=== PATIENT | male | born 1965 | race Caucasian/White ===

== ENCOUNTER 2021-05-18 11:54 | Emergency (ER) | payer MEDICAID ==
--- NOTE | 2021-05-18 12:50 | EDM.PDOC ---
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 They had just inserted the needle in his arm but hadn't drawn much blood yet. He "passed out" for about 30 seconds and exhibited a few dry heaves. He was sitting back in his chair and didn't fall to floor. No loss of urine. Patient doesn't remember any of this. He tells me he has had body aches, fatigue, weakness and occasional vomiting and diarrhea for the last week. Also felt feverish but never checked temp. The last two days he has been improving but still loose stools 3x/day and still feeling weak and tired. He feels like he is getting over the "flu". He was tested yesterday for Covid, influenza a/b, RSV here at the hospital and all were negative. - Related Data Allergies Allergy/AdvReac Type Severity Reaction Status Date / Time pollen extracts Allergy Other Verified 05/18/21 12:00 Home Meds: Home Meds Albuterol Sulfate [Proair Hfa] 2 inh INH Q4H PRN 05/18/21 [History] Lisinopril/Hydrochlorothiazide [Lisinopril-Hctz 20-12.5 mg Tab] 1 tab PO DAILY 05/18/21 [History] amLODIPine [Norvasc] 2.5 mg PO DAILY 05/18/21 [History] Past Medical History Cardiovascular History: Reports: Hypertension Respiratory History: Reports: Asthma Social & Family History - Tobacco Use Tobacco Use Status *Q: Current Every Day Tobacco User Years of Tobacco use: 39 Packs/Tins Daily: 1 Second Hand Smoke Exposure: Yes - Caffeine Use Caffeine Use: Reports: Soda Caffeine Use Comment: 6 cans per day - Alcohol Use Days Per Week of Alcohol Use: 7 Number of Drinks Per Day: 2 Total Drinks Per Week: 14 Date of Last Drink: 05/18/21 Time of Last Drink: 21:00 - Recreational Drug Use Recreational Drug Use: No ED ROS GENERAL - Review of Systems Review Of Systems: See Below Constitutional: Reports: Chills, Malaise, Weakness, Fatigue HEENT: Denies: Ear Pain, Throat Pain, Vision Change Respiratory: Denies: Shortness of Breath, Cough (no worse than his normal "smokers cough") Cardiovascular: Reports: Syncope. Denies: Chest Pain, Lightheadedness Endocrine: Reports: Fatigue GI/Abdominal: Reports: Diarrhea, Vomiting. Denies: Abdominal Pain : Denies: Dysuria, Flank Pain Musculoskeletal: Reports: No Symptoms Skin: Reports: No Symptoms Neurological: Reports: Syncope. Denies: Confusion, Dizziness, Headache, Seizure, Trouble Speaking, Difficulty Walking Psychiatric: Denies: Agitation, Anxiety, Confusion ED EXAM, GENERAL - Physical Exam Exam: See Below Exam Limited By: No Limitations General Appearance: Alert, WD/WN, No Apparent Distress Eye Exam: Bilateral Eye: EOMI, Normal Inspection, PERRL Ears: Normal External Exam, Hearing Grossly Normal Nose: Normal Inspection, No Blood Throat/Mouth: Normal Inspection, Normal Lips, Normal Voice, No Airway Compromise Head: Atraumatic, Normocephalic Neck: Normal Inspection, Full Range of Motion Respiratory/Chest: No Respiratory Distress, Lungs Clear, Normal Breath Sounds, No Accessory Muscle Use Cardiovascular: Regular Rate, Rhythm, No Murmur GI/Abdominal: Normal Bowel Sounds, Soft, Non-Tender, No Organomegaly, No Distention Back Exam: Normal Inspection, Full Range of Motion. No: CVA Tenderness (L), CVA Tenderness (R) Extremities: Normal Inspection, Normal Range of Motion Neurological: Alert, Oriented, Normal Cognition, No Motor/Sensory Deficits Psychiatric: Normal Affect, Normal Mood Skin Exam: Warm, Dry, Intact, Normal Color, No Rash Course - Vital Signs Last Recorded V/S: Last Vital Signs Temp 96.5 F L 05/18/21 11:55 Pulse 70 05/18/21 13:15 Resp 20 05/18/21 13:15 BP 167/104 H 05/18/21 13:15 Pulse Ox 97 05/18/21 13:15 - Orders/Labs/Meds Orders: Active Orders 24 hr Category Date Time Status Sodium Chloride 0.9% @ 999 MLS/HR (1000ml) Med 05/18/21 12:57 Ordered Sodium Chloride 0.9% [Normal Saline] 1,000 ml IV .BOLUS EKG 12 Lead [EK] Stat Ther 05/18/21 12:42 Ordered Medication Orders Sodium Chloride (Normal Saline) 1,000 mls @ 999 mls/hr IV .BOLUS ONE Stop: 05/18/21 13:57 Last Admin: 05/18/21 13:10 Dose: 999 mls/hr Documented by: MADAN Meds: Medications Generic Name Dose Route Start Last Admin Trade Name Cindy PRN Reason Stop Dose Admin Sodium Chloride 1,000 mls @ 999 mls/hr 05/18/21 12:57 05/18/21 13:10 Normal Saline IV 05/18/21 13:57 999 mls/hr .BOLUS ONE Administration - Re-Assessments/Exams Free Text/Narrative Re-Assessment/Exam: 05/18/21 13:33 EKG shows NSR with HR 65 05/18/21 13:52 CBC and CMP are good. Since they were ordered, along with lipid panel by Dr. Turner, they don't populate into this ER note but I discussed them with mary kate mancia. I informed him that his triglycerides are elevated and he will want to discuss those results with Dr. Turner soon. Patient is feeling better and a liter of NS is almost in. He is discharged to home in stable condition. Departure - Departure Time of Disposition: 13:54 Disposition: Home, Self-Care 01 Condition: Good Clinical Impression: Episode of syncope Qualifiers: Syncope type: vasovagal syncope Qualified Code(s): R55 - Syncope and collapse - Discharge Information Instructions: Syncope, [id number] Referrals: Jaylin Tamayo MD [Primary Care Provider] - Forms: ED Department Discharge Additional Instructions: Drink 8 cups of water daily. Call your PCP for follow up appointment to discuss your labs from today. If any problems, recheck in clinic or ER as needed. Sepsis Event Note (ED) - Evaluation Sepsis Screening Result: No Definite Risk - Focused Exam Vital Signs: Vital Signs Temp Pulse Resp BP Pulse Ox 05/18/21 13:15 70 20 167/104 H 97 05/18/21 11:55 96.5 F L 75 20 122/83 98 - My Orders Last 24 Hours: My Active Orders 05/18/21 12:42 EKG 12 Lead [EK] Stat 05/18/21 12:57 Sodium Chloride 0.9% @ 999 MLS/HR (1000ml) Sodium Chloride 0.9% [Normal Saline] 1,000 ml IV .BOLUS - Assessment/Plan Last 24 Hours: My Active Orders 05/18/21 12:42 EKG 12 Lead [EK] Stat 05/18/21 12:57 Sodium Chloride 0.9% @ 999 MLS/HR (1000ml) Sodium Chloride 0.9% [Normal Saline] 1,000 ml IV .BOLUS
[2021-05-18] MEDS: Sodium Chloride 0.9% 1,000 ML IV ONE (13:10)
[2021-05-18] MEDS: Metoprolol Tartrate 50 MG Tab PO ONE (14:32)
[2021-05-18] MEDS: LORazepam 0.5 MG Tab PO ONE (14:33)
== END 2021-05-18 15:35 | disposition home or self-care (01) ==
LOC: KA.ED 11:54
DX: R55 Syncope and collapse (principal); I10 Essential (primary) hypertension; J45.909 Unspecified asthma, uncomplicated; Z91.09 Other allergy status, other than to drugs and biological substances; Z72.0 Tobacco use; Z79.899 Other long term (current) drug therapy
CPT/HCPCS: 93005; 99284; 99284-25; A9270-GY; J7030

== ENCOUNTER 2021-05-21 12:05 | Emergency (ER) | payer MEDICAID ==
--- NOTE | 2021-05-21 13:45 | CT ---
[id number] CT/CT Head WO IV EXAM: CT Head WO IV CLINICAL DATA: NEUROLOGIC DEFICIT COMPARISON: No previous similar exam is available for comparison. FINDINGS: There is no mass or mass effect. There is no hemorrhage or hydrocephalus. There are no extra-axial fluid collections. There are no sites of abnormal attenuation. IMPRESSION: NO PLAIN CT EVIDENCE OF ACUTE INTRACRANIAL PROCESS. Lamin Angela MD 05/21/21 [id number] Thank you for allowing us to participate in the care of your patient.
--- NOTE | 2021-05-21 13:49 | EDM.PDOC ---
ED HPI GENERAL MEDICAL PROBLEM - General Stated Complaint: DISORIENTATION Time Seen by Provider: 05/21/21 13:04 Source of Information: Reports: Patient, Provider, Significant Other History Limitations: Reports: No Limitations - History of Present Illness INITIAL COMMENTS - FREE TEXT/NARRATIVE: Patient presents with several symptoms; some old, some new. For the past 2 weeks he has noticed some trouble with balance and blurry vision. Three days ago he passed out from a routine lab draw which seemed odd to him since he frequently has small injuries at work and isn't bothered by seeing his own blood. He was in ER for that. Last evening he had 2 drinks of alcohol and around 9-10:00 PM took his Alprazolam for the first time (a new Rx from PCP, Jurgen Osborne). He awoke at 0400 not feeling quite right, a little confused. His says at 0730, he took a bath and got ready for work then went back to bed and slept a bit. At 0800 he took another bath and didn't remember he did before; says he was "disoriented like he was drunk". At 0930 he went to work and they sent him home due to confusion. At 1000 he couldn't remember how to use his debit card/PIN at [employer]. He isn't disoriented except thought it was 05/20 instead of 05/21. He knew yesterday was 's Day, knows today is Monday. - Related Data Allergies Allergy/AdvReac Type Severity Reaction Status Date / Time pollen extracts Allergy Other Verified 05/21/21 12:14 Home Meds: Home Meds Albuterol Sulfate [Proair Hfa] 2 inh INH Q4H PRN 05/18/21 [History] Lisinopril/Hydrochlorothiazide [Lisinopril-Hctz 20-12.5 mg Tab] 1 tab PO DAILY 05/18/21 [History] amLODIPine [Norvasc] 2.5 mg PO DAILY 05/18/21 [History] ALPRAZolam [Alprazolam] 0.25 mg PO Q8HR PRN 05/21/21 [History] Fenofibrate 160 mg PO DAILY 05/21/21 [History] Fluticasone/Salmeterol [Advair 100-50] 1 puff INH DAILY 05/21/21 [History] Past Medical History Cardiovascular History: Reports: Hypertension Respiratory History: Reports: Asthma Social & Family History - Caffeine Use Caffeine Use: Reports: Soda Caffeine Use Comment: 6 cans per day ED ROS GENERAL - Review of Systems Review Of Systems: See Below Constitutional: Reports: Chills (feels chilled and shaking in exam room). Denies: Fever HEENT: Denies: Ear Pain, Throat Pain Respiratory: Denies: Shortness of Breath, Cough Cardiovascular: Reports: Syncope (three days ago). Denies: Chest Pain GI/Abdominal: Reports: Vomiting (not often). Denies: Abdominal Pain : Denies: Dysuria, Flank Pain Musculoskeletal: Denies: Neck Pain, Shoulder Pain, Arm Pain Skin: Denies: Cyanosis, Jaundice, Mottled, Pallor, Diaphoresis Neurological: Reports: Confusion. Denies: Headache Psychiatric: Denies: Agitation - Physical Exam Exam: See Below Exam Limited By: No Limitations General Appearance: Alert, WD/WN, No Apparent Distress Eye Exam: Bilateral Eye: EOMI, Normal Inspection (full visual osuna), PERRL Ears: Normal External Exam, Hearing Grossly Normal Nose: Normal Inspection, No Blood Throat/Mouth: Normal Inspection, Normal Lips, Normal Voice, No Airway Compromise Head Exam: Atraumatic, Normocephalic Neck: Normal Inspection, Full Range of Motion Respiratory/Chest: No Respiratory Distress, Lungs Clear, Normal Breath Sounds, No Accessory Muscle Use Cardiovascular: Regular Rate, Rhythm, No Murmur GI/Abdominal: Normal Bowel Sounds, Soft, Non-Tender, No Organomegaly, No Distention Neuro Exam (Abbreviated): Alert, Oriented, CN II-XII Intact Back Exam: Normal Inspection, Full Range of Motion. 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 He hasn't noticed a right leg weakness.) Psychiatric: Normal Affect, Normal Mood Skin Exam: Warm, Dry, Intact, Normal Color, No Rash Course - Vital Signs Last Recorded V/S: Last Vital Signs Temp 97.0 F 05/21/21 12:15 Pulse 88 05/21/21 12:45 Resp 16 05/21/21 12:45 BP 128/85 05/21/21 12:45 Pulse Ox 97 05/21/21 12:45 - Orders/Labs/Meds Orders: Active Orders 24 hr Category Date Time Status UA W/MICROSCOPIC [URIN] Stat Lab 05/21/21 13:43 Ordered [place] VIRUS ANTIBODY,SERUM [REF] Stat Lab 05/21/21 13:51 Ordered Labs: Laboratory Tests 05/21/21 05/21/21 05/21/21 Range/Units 13:37 13:37 14:07 WBC 6.48 (5.00-10.00) 10^3/uL RBC 4.75 (4.50-6.00) 10^6/uL Hgb 15.3 (13.0-17.0) g/dL Hct 44.1 (40.0-52.0) % MCV 92.8 H (82.0-92.0) fL MCH 32.2 H (27.0-31.0) pg MCHC 34.7 (32.0-36.0) g/dL RDW 13.0 (11.5-14.5) % Plt Count 224 (150-400) 10^3/uL MPV 8.5 (7.4-10.4) fL Immature Gran % (Auto) 0.2 (0.0-5.0) % Neut % (Auto) 79.8 H (50.0-70.0) % Lymph % (Auto) 15.3 L (20.0-40.0) % Coffey % (Auto) 4.3 (2.0-8.0) % Eos % (Auto) 0.2 L (1.0-3.0) % Baso % (Auto) 0.2 (0.0-1.0) % Neut # (Auto) 5.18 (2.50-7.00) 10^3/uL Lymph # (Auto) 0.99 L (1.00-4.00) 10^3/uL Coffey # (Auto) 0.28 (0.10-0.80) 10^3/uL Eos # (Auto) 0.01 L (0.10-0.30) 10^3/uL Baso # (Auto) 0.01 (0.00-0.10) 10^3/uL Immature Gran # (Auto) 0.01 (0.00-0.50) 10^3/uL Sodium 140 (136-145) mmol/L Potassium 4.1 (3.5-5.1) mmol/L Chloride 102 (98-107) mmol/L Carbon Dioxide 23.8 (21.0-32.0) mmol/L Anion Gap 18.3 H (5-15) mmol/L BUN 14 (7-18) mg/dL Creatinine 0.71 (0.51-1.17) mg/dL Est Cr Clr Drug Dosing 123.73 mL/min Estimated GFR (MDRD) > 60 mL/min Glucose 107 (70-140) mg/dL Calcium 8.8 (8.7-10.3) mg/dL Total Bilirubin 0.6 (0.2-1.0) mg/dL AST 36 (15-37) U/L ALT 42 (14-63) U/L Alkaline Phosphatase 50 (46-116) U/L Total Protein 7.8 (6.4-8.2) g/dL Albumin 3.85 (3.40-5.00) g/dL Ethyl Alcohol 221 H* (NOT DETECTED) mg/dL SARS CoV-2 RNA Rapid PHI Negative (NEGATIVE) - Re-Assessments/Exams Free Text/Narrative Re-Assessment/Exam: 05/21/21 14:[address] and CBC are normal. Waiting on more labs. 05/21/21 15:02 CBC, CMP, Covid are normal. ETOH is 221. Since Jurgen Osborne NP is his PCP and talked to him this morning before he came to ER, I discussed case with him. At around 0900 he had told patient to not go to work since he wasn't feeling quite right and didn't want him driving. Jurgen and I talked with the patient about the ETOH and he first said he had one drink this morning; then said he had 2 drinks this morning; it sounds a little fuzzy about how much the drinks (venita) actually were. While we waited for the last labs patient left without final discussion of results and plan. The nurse called him back with results and talked with his ; he had made it home. Based on findings, we feel there is no stroke symptoms and it is all likely due to alcohol use. He will follow up with Jurgen in clinic for help with this. Departure - Departure Time of Disposition: 15:11 Disposition: Home, Self-Care 01 Condition: Good Clinical Impression: Alcohol abuse - Discharge Information Referrals: Jurgen Osborne [employer] [Primary Care Provider] - Sepsis Event Note (ED) - Focused Exam Vital Signs: Vital Signs Temp Pulse Resp BP Pulse Ox 05/21/21 12:45 88 16 128/85 97 05/21/21 12:30 94 16 133/96 H 98 05/21/21 12:15 97.0 F 105 H 20 145/90 H 97 - My Orders Last 24 Hours: My Active Orders 05/21/21 13:43 UA W/MICROSCOPIC [URIN] Stat 05/21/21 13:51 [place] VIRUS ANTIBODY,SERUM [REF] Stat - Assessment/Plan Last 24 Hours: My Active Orders 05/21/21 13:43 UA W/MICROSCOPIC [URIN] Stat 05/21/21 13:51 [place] VIRUS ANTIBODY,SERUM [REF] Stat
[2021-05-21 14:07] LABS: ANION GAP 18.3 mmol/L (5-15); CHLORIDE,CL 102 mmol/L (98-107); SODIUM,NA 140 mmol/L (136-145)
== END 2021-05-21 14:40 | disposition home or self-care (01) ==
LOC: KA.ED 12:05
DX: F10.10 Alcohol abuse, uncomplicated (principal); I10 Essential (primary) hypertension; J45.909 Unspecified asthma, uncomplicated; Y90.7 Blood alcohol level of 200-239 mg/100 ml; Z91.048 Other nonmedicinal substance allergy status; Z79.899 Other long term (current) drug therapy; Z20.822 Contact with and (suspected) exposure to COVID-19
CPT/HCPCS: 36415; 70450; 80053; 80307; 85025; 86788; 86789; 99284-25; U0002

== ENCOUNTER 2022-07-05 10:38 | Emergency (ER) | payer MEDICAID ==
[2022-07-05] MEDS ORDERED: Sodium Chloride 0.9% 1,000 ML IV ONE (11:17)
[2022-07-05 11:42] LABS: ANION GAP 18.6 mmol/L (5-15); CHLORIDE,CL 101 mmol/L (98-107); SODIUM,NA 138 mmol/L (136-145)
[2022-07-05 11:43] LABS: ESTIMATED GFR 100 mL/min (>=60)
== END 2022-07-05 15:10 | disposition home or self-care (01) ==
LOC: KA.ED 10:38
DX: F10.129 Alcohol abuse with intoxication, unspecified (principal); J45.909 Unspecified asthma, uncomplicated; R68.83 Chills (without fever); I10 Essential (primary) hypertension; Z91.048 Other nonmedicinal substance allergy status; Z79.899 Other long term (current) drug therapy
CPT/HCPCS: 80053; 80307; 81001; 84484; 85025; 93005; 93010; 96360; 99284; 99285-25; J7030

== ENCOUNTER 2022-08-22 10:50 | Emergency (ER) | payer MEDICAID ==
[2022-08-22] MEDS: Sodium Chloride 0.9% 1,000 ML IV ONE (11:06)
[2022-08-22 11:22] LABS: ANION GAP 18.4 mmol/L (5-15)
== END 2022-08-22 14:08 | disposition home or self-care (01) ==
LOC: KA.ED 10:50
DX: R42 Dizziness and giddiness (principal); F10.920 Alcohol use, unspecified with intoxication, uncomplicated; I10 Essential (primary) hypertension; J45.909 Unspecified asthma, uncomplicated; Z91.048 Other nonmedicinal substance allergy status; Z79.899 Other long term (current) drug therapy; Y90.4 Blood alcohol level of 80-99 mg/100 ml
CPT/HCPCS: 36415; 80053; 80307; 84484; 85025; 93005; 93010; 96360; 99284; 99284-25; J7030

== ENCOUNTER 2024-02-22 13:09 | Emergency (ER) | payer MEDICAID ==
[2024-02-22 13:28] LABS: HEMOGLOBIN 13.3 g/dL (13.0-17.0); IMMATURE GRAN ABSOLUTE AUTO 0.01 10^3/uL (0.00-0.50); IMMATURE GRAN PERCENT AUTO 0.2 % (0.0-5.0); LYMPHOCYTES ABSOLUTE AUTO 0.28 10^3/uL (1.00-4.00); LYMPHOCYTES PERCENT AUTO 4.6 % (20.0-40.0); MEAN CORPUSCULAR HEMOGLOBIN 32.6 pg (27.0-31.0); MEAN CORPUSCULAR VOLUME 93.1 fL (82.0-92.0); MEAN PLATELET VOLUME 8.6 fL (7.4-10.4); MONOCYTES ABSOLUTE AUTO 0.23 10^3/uL (0.10-0.80); MONOCYTES PERCENT AUTO 3.8 % (2.0-8.0); NEUTROPHILS ABSOLUTE AUTO 5.52 10^3/uL (2.50-7.00); NEUTROPHILS PERCENT AUTO 91.4 % (50.0-70.0); PLATELET COUNT,PLT 160 10^3/uL (150-400); RED BLOOD CELL COUNT 4.08 10^6/uL (4.50-6.00); RED CELL DISTRIBUTION WIDTH 13.9 % (11.5-14.5); WHITE BLOOD CELL COUNT,WBC 6.04 10^3/uL (5.00-10.00)
[2024-02-22 13:48] LABS: ANION GAP 20.3 mmol/L (5-15); BLOOD UREA NITROGEN,BUN 16 mg/dL (7-18); CALCIUM 8.6 mg/dL (8.7-10.3); CARBON DIOXIDE,CO2 21.2 mmol/L (21.0-32.0); CHLORIDE,CL 103 mmol/L (98-107); CREATININE 0.86 mg/dL (0.51-1.17); GLUCOSE RANDOM 119 mg/dL (70-140); POTASSIUM,K 3.5 mmol/L (3.5-5.1); SODIUM,NA 141 mmol/L (136-145)
[2024-02-22 13:51] LABS: ESTIMATED GFR 100 mL/min (>=60)
[2024-02-22] MEDS: Albuterol 0.083% 2.5 MG/3 ML Neb Soln NEB ONE (14:08)
== END 2024-02-22 14:50 | disposition home or self-care (01) ==
LOC: KA.ED 13:09
DX: J44.0 Chronic obstructive pulmonary disease with (acute) lower respiratory infection (principal); J45.41 Moderate persistent asthma with (acute) exacerbation; I10 Essential (primary) hypertension; E78.00 Pure hypercholesterolemia, unspecified; F17.200 Nicotine dependence, unspecified, uncomplicated; Z91.048 Other nonmedicinal substance allergy status; Z91.018 Allergy to other foods; Z79.51 Long term (current) use of inhaled steroids; Z79.899 Other long term (current) drug therapy
CPT/HCPCS: 36415; 80048; 83605; 84484; 85025; 94640; 99285; J7613-GY

== ENCOUNTER 2024-03-30 16:25 | Emergency (ER) | payer MEDICAID ==
[2024-03-30] MEDS: Sodium Chloride 0.9% 1,000 ML IV ONE ×2 (16:56→17:58)
[2024-03-30 16:57] LABS: BASOPHILS ABSOLUTE AUTO 0.04 10^3/uL (0.00-0.10); BASOPHILS PERCENT AUTO 1.2 % (0.0-1.0); EOSINOPHILS ABSOLUTE AUTO 0.07 10^3/uL (0.10-0.30); HEMATOCRIT 37.2 % (40.0-52.0); HEMOGLOBIN 13.1 g/dL (13.0-17.0); LYMPHOCYTES ABSOLUTE AUTO 0.62 10^3/uL (1.00-4.00); LYMPHOCYTES PERCENT AUTO 18.1 % (20.0-40.0); MEAN CORPUSCULAR HEMOGLOBIN 33.8 pg (27.0-31.0); MEAN CORPUSCULAR HGB CONC 35.2 g/dL (32.0-36.0); MEAN CORPUSCULAR VOLUME 95.9 fL (82.0-92.0); MEAN PLATELET VOLUME 9.2 fL (7.4-10.4); MONOCYTES PERCENT AUTO 11.7 % (2.0-8.0); PLATELET COUNT,PLT 106 10^3/uL (150-400); RED BLOOD CELL COUNT 3.88 10^6/uL (4.50-6.00); RED CELL DISTRIBUTION WIDTH 15.1 % (11.5-14.5); WHITE BLOOD CELL COUNT,WBC 3.43 10^3/uL (5.00-10.00)
[2024-03-30 17:13] LABS: ANION GAP 16.6 mmol/L (5-15); CALCIUM 8.7 mg/dL (8.7-10.3); CARBON DIOXIDE,CO2 27.4 mmol/L (21.0-32.0); CREATININE 0.64 mg/dL (0.51-1.17); EST CRCL DRUG DOSING (CG) 132.36 mL/min
[2024-03-30] MEDS: [UNRECOGNIZED DRUG - OTHER] PO ONE (17:35)
[2024-03-30] MEDS: THIAMINE PO ONE (17:35)
[2024-03-30] MEDS: LUT PO ONE (17:35)
[2024-03-30] MEDS: FOLIC ACID PO ONE (17:35)
[2024-03-30] MEDS: MV CA IRON MIN PO ONE (17:35)
[2024-03-30] MEDS: LYCOPENE PO ONE (17:35)
[2024-03-30] MEDS: Potassium Chloride 20 MEQ Tab.ER PO ONE (17:35)
[2024-03-30 18:28] LABS: APPEARANCE,URINE CLEAR (CLEAR); BILIRUBIN,URINE NEGATIVE (NEGATIVE); COLOR,URINE YELLOW (YELLOW); GLUCOSE,URINE NEGATIVE (NEGATIVE); KETONES,URINE NEGATIVE (NEGATIVE); LEUKOCYTE ESTERASE,URINE NEGATIVE (NEGATIVE); NITRITE,URINE NEGATIVE (NEGATIVE); OCCULT BLOOD,URINE NEGATIVE (NEGATIVE); PROTEIN,URINE NEGATIVE (NEGATIVE); UROBILINOGEN,URINE 0.2 E.U./dL (0.2-1.0)
[2024-03-30 18:36] LABS: AMPHETAMINES SCREEN, URINE NEGATIVE (NEGATIVE); BACTERIA,URINE RARE /HPF (NONE TO FEW); BARBITURATE SCREEN,URINE NEGATIVE (NEGATIVE); BENZODIAZEPINES SCREEN,URINE NEGATIVE (NEGATIVE); COCAINE METABOLITES,URINE NEGATIVE (NEGATIVE); EPITHELIAL CELLS,URINE RARE /LPF; METHAMPHETAMINES SCREEN, URINE NEGATIVE (NEGATIVE); RBC,URINE 0-5 /HPF (0-5); WBC,URINE 0-5 /HPF (0-5)
[2024-03-30 18:37] LABS: METHADONE SCREEN, URINE NEGATIVE (NEGATIVE); OXYCODONE SCREEN,URINE NEGATIVE (NEGATIVE); PCP SCREEN,URINE NEGATIVE (NEGATIVE); TCA SCREEN,URINE NEGATIVE (NEGATIVE); THC SCREEN,URINE 50 NG/ML NEGATIVE (NEGATIVE)
== END 2024-03-30 19:10 | disposition home or self-care (01) ==
LOC: KA.ED 16:25
DX: F10.220 Alcohol dependence with intoxication, uncomplicated (principal); E87.6 Hypokalemia; I10 Essential (primary) hypertension; F17.210 Nicotine dependence, cigarettes, uncomplicated; Z91.048 Other nonmedicinal substance allergy status; Z79.899 Other long term (current) drug therapy
CPT/HCPCS: 80048; 80305; 80307; 81001; 84484; 85025; 96360; 96361; 99285; A9270; J7030; 93005

== ENCOUNTER 2024-03-31 09:02 | Emergency (ER) | payer MEDICAID | END 2024-03-31 10:45 | disposition home or self-care (01) | LOC: KA.ED 09:02 | DX: F10.120 Alcohol abuse with intoxication, uncomplicated (principal); I10 Essential (primary) hypertension; J45.909 Unspecified asthma, uncomplicated; F17.210 Nicotine dependence, cigarettes, uncomplicated; Z79.899 Other long term (current) drug therapy; Z91.048 Other nonmedicinal substance allergy status | CPT/HCPCS: 99283 ==

== ENCOUNTER 2024-03-31 12:44 | Emergency (ER) | payer MEDICAID ==
[2024-03-31] MEDS: Sodium Chloride 0.9% 1,000 ML IV ONE ×2 (13:14→14:23)
[2024-03-31 13:32] LABS: BASOPHILS ABSOLUTE AUTO 0.04 10^3/uL (0.00-0.10); BASOPHILS PERCENT AUTO 1.1 % (0.0-1.0); EOSINOPHILS ABSOLUTE AUTO 0.07 10^3/uL (0.10-0.30); EOSINOPHILS PERCENT AUTO 1.8 % (1.0-3.0); HEMATOCRIT 38.8 % (40.0-52.0); HEMOGLOBIN 13.4 g/dL (13.0-17.0); IMMATURE GRAN ABSOLUTE AUTO 0.01 10^3/uL (0.00-0.50); IMMATURE GRAN PERCENT AUTO 0.3 % (0.0-5.0); LYMPHOCYTES ABSOLUTE AUTO 0.55 10^3/uL (1.00-4.00); LYMPHOCYTES PERCENT AUTO 14.5 % (20.0-40.0); MEAN CORPUSCULAR HEMOGLOBIN 33.4 pg (27.0-31.0); MEAN CORPUSCULAR HGB CONC 34.5 g/dL (32.0-36.0); MEAN CORPUSCULAR VOLUME 96.8 fL (82.0-92.0); MEAN PLATELET VOLUME 9.2 fL (7.4-10.4); MONOCYTES ABSOLUTE AUTO 0.44 10^3/uL (0.10-0.80); MONOCYTES PERCENT AUTO 11.6 % (2.0-8.0); NEUTROPHILS ABSOLUTE AUTO 2.68 10^3/uL (2.50-7.00); NEUTROPHILS PERCENT AUTO 70.7 % (50.0-70.0); PLATELET COUNT,PLT 119 10^3/uL (150-400); RED BLOOD CELL COUNT 4.01 10^6/uL (4.50-6.00); RED CELL DISTRIBUTION WIDTH 15.1 % (11.5-14.5); WHITE BLOOD CELL COUNT,WBC 3.79 10^3/uL (5.00-10.00)
[2024-03-31 13:34] LABS: ANION GAP 14.9 mmol/L (5-15); BLOOD UREA NITROGEN,BUN 6 mg/dL (7-18); CALCIUM 8.3 mg/dL (8.7-10.3); CARBON DIOXIDE,CO2 26.2 mmol/L (21.0-32.0); CHLORIDE,CL 101 mmol/L (98-107); CREATININE 0.51 mg/dL (0.51-1.17); ESTIMATED GFR 117 mL/min (>=60); GLUCOSE RANDOM 97 mg/dL (70-140); POTASSIUM,K 3.1 mmol/L (3.5-5.1); SODIUM,NA 139 mmol/L (136-145)
[2024-03-31 13:36] LABS: ETHANOL BLOOD MEDICAL 415 mg/dL (NOT DETECTED)
[2024-03-31] MEDS: Sodium Chloride 0.9% 1,000 ML ONE (13:58)
[2024-03-31] MEDS: Potassium Chloride 20 MEQ Tab.ER PO ONE (14:13)
[2024-03-31] MEDS: LORazepam 0.5 MG Tab PO ONE (17:30)
== END 2024-03-31 17:55 | disposition home or self-care (01) ==
LOC: KA.ED 12:44
DX: E87.6 Hypokalemia (principal); F10.220 Alcohol dependence with intoxication, uncomplicated; F32.A Depression, unspecified; I10 Essential (primary) hypertension; J45.909 Unspecified asthma, uncomplicated; F17.210 Nicotine dependence, cigarettes, uncomplicated; Z79.899 Other long term (current) drug therapy; Z88.0 Allergy status to penicillin; Z91.048 Other nonmedicinal substance allergy status
CPT/HCPCS: 36415; 80048; 80307; 85025; 96360; 96361; 99285; A9270; J7030

== ENCOUNTER 2024-05-10 20:24 | Emergency (ER) | payer MEDICAID ==
[2024-05-10 20:49] LABS: BASOPHILS ABSOLUTE AUTO 0.05 10^3/uL (0.00-0.10); BASOPHILS PERCENT AUTO 0.9 % (0.0-1.0); EOSINOPHILS ABSOLUTE AUTO 0.13 10^3/uL (0.10-0.30); EOSINOPHILS PERCENT AUTO 2.5 % (1.0-3.0); HEMATOCRIT 41.6 % (40.0-52.0); HEMOGLOBIN 14.7 g/dL (13.0-17.0); LYMPHOCYTES ABSOLUTE AUTO 1.38 10^3/uL (1.00-4.00); LYMPHOCYTES PERCENT AUTO 26.1 % (20.0-40.0); MEAN CORPUSCULAR HEMOGLOBIN 32.7 pg (27.0-31.0); MEAN CORPUSCULAR HGB CONC 35.3 g/dL (32.0-36.0); MEAN CORPUSCULAR VOLUME 92.7 fL (82.0-92.0); MEAN PLATELET VOLUME 8.8 fL (7.4-10.4); MONOCYTES ABSOLUTE AUTO 0.43 10^3/uL (0.10-0.80); MONOCYTES PERCENT AUTO 8.1 % (2.0-8.0); NEUTROPHILS PERCENT AUTO 62.4 % (50.0-70.0); PLATELET COUNT,PLT 171 10^3/uL (150-400); RED BLOOD CELL COUNT 4.49 10^6/uL (4.50-6.00); RED CELL DISTRIBUTION WIDTH 12.9 % (11.5-14.5); WHITE BLOOD CELL COUNT,WBC 5.29 10^3/uL (5.00-10.00)
[2024-05-10 21:01] LABS: ALBUMIN 3.75 g/dL (3.40-5.00); ANION GAP 19.7 mmol/L (5-15); BILIRUBIN TOTAL 0.4 mg/dL (0.2-1.0); CALCIUM 8.5 mg/dL (8.7-10.3); CARBON DIOXIDE,CO2 22.3 mmol/L (21.0-32.0); CREATININE 0.67 mg/dL (0.51-1.17); EST CRCL DRUG DOSING (CG) 123.46 mL/min; PROTEIN TOTAL,TP 7.3 g/dL (6.4-8.2)
[2024-05-10] MEDS: Sodium Chloride 0.9% 1,000 ML IV ONE (21:39)
[2024-05-10 21:55] VITALS: BP 124/93; PULSE 87
== END 2024-05-10 23:05 | disposition home or self-care (01) ==
LOC: KA.ED 20:24
DX: R07.9 Chest pain, unspecified (principal); F10.920 Alcohol use, unspecified with intoxication, uncomplicated; I10 Essential (primary) hypertension; Z91.048 Other nonmedicinal substance allergy status; Z79.1 Long term (current) use of non-steroidal anti-inflammatories (NSAID); Z79.51 Long term (current) use of inhaled steroids; Z79.899 Other long term (current) drug therapy
CPT/HCPCS: 36415; 71045; 80053; 80307; 84484; 85025; 93010; 99284; 99285; J7030

== ENCOUNTER 2024-06-09 21:23 | Emergency (ER) | payer MEDICAID ==
[2024-06-09 22:24] LABS: BASOPHILS ABSOLUTE AUTO 0.05 10^3/uL (0.00-0.10); BASOPHILS PERCENT AUTO 0.8 % (0.0-1.0); EOSINOPHILS PERCENT AUTO 1.6 % (1.0-3.0); HEMATOCRIT 41.7 % (40.0-52.0); HEMOGLOBIN 14.8 g/dL (13.0-17.0); LYMPHOCYTES ABSOLUTE AUTO 1.75 10^3/uL (1.00-4.00); LYMPHOCYTES PERCENT AUTO 27.8 % (20.0-40.0); MEAN CORPUSCULAR HGB CONC 35.5 g/dL (32.0-36.0); MEAN CORPUSCULAR VOLUME 90.3 fL (82.0-92.0); MEAN PLATELET VOLUME 8.9 fL (7.4-10.4); MONOCYTES ABSOLUTE AUTO 0.41 10^3/uL (0.10-0.80); MONOCYTES PERCENT AUTO 6.5 % (2.0-8.0); NEUTROPHILS ABSOLUTE AUTO 3.98 10^3/uL (2.50-7.00); NEUTROPHILS PERCENT AUTO 63.3 % (50.0-70.0); PLATELET COUNT,PLT 147 10^3/uL (150-400); RED BLOOD CELL COUNT 4.62 10^6/uL (4.50-6.00); WHITE BLOOD CELL COUNT,WBC 6.29 10^3/uL (5.00-10.00)
[2024-06-09 22:41] LABS: ALANINE AMINOTRANSFERASE,ALT 20 U/L (14-63); ALBUMIN 3.51 g/dL (3.40-5.00); ALKALINE PHOSPHATASE 68 U/L (46-116); ANION GAP 15.7 mmol/L (5-15); ASPARTATE AMNIOTRANSFERASE,AST 43 U/L (15-37); BILIRUBIN TOTAL 0.6 mg/dL (0.2-1.0); BLOOD UREA NITROGEN,BUN 9 mg/dL (7-18); CALCIUM 7.5 mg/dL (8.7-10.3); CARBON DIOXIDE,CO2 25.7 mmol/L (21.0-32.0); CHLORIDE,CL 101 mmol/L (98-107); GLUCOSE RANDOM 93 mg/dL (70-140); MAGNESIUM 1.7 mg/dL (1.8-2.4); POTASSIUM,K 3.4 mmol/L (3.5-5.1); PROTEIN TOTAL,TP 6.9 g/dL (6.4-8.2); SODIUM,NA 139 mmol/L (136-145)
[2024-06-09] MEDS: methylPREDNISolone Sodium Succinate 125 MG/2 ML SDV IVPUSH ONE (22:41)
[2024-06-09 22:42] LABS: ESTIMATED GFR 111 mL/min (>=60)
[2024-06-09 22:43] LABS: ETHANOL BLOOD MEDICAL 397 mg/dL (<3)
[2024-06-09] MEDS: LORazepam 2 MG/ML SDV IVPUSH ONE ×2 (23:02→23:05)
[2024-06-09] MEDS: LORazepam 2 MG/ML SDV ONE (23:02)
[2024-06-09] MEDS: Albuterol/Ipratropium 3.0-0.5 MG/3 ML Neb Soln NEB ONE (23:13)
[2024-06-09] MEDS: Sodium Chloride 0.9% 1,000 ML IV ONE (23:13)
[2024-06-09] MEDS ORDERED: Norepinephrine Bit/0.9 % NaCl 4 MG in Premix Bag 1 BAG IV SCH (23:30)
[2024-06-09 23:38] LABS: AMPHETAMINES SCREEN, URINE NEGATIVE (NEGATIVE); BARBITURATE SCREEN,URINE NEGATIVE (NEGATIVE); BENZODIAZEPINES SCREEN,URINE NEGATIVE (NEGATIVE); COCAINE METABOLITES,URINE NEGATIVE (NEGATIVE); METHADONE SCREEN, URINE NEGATIVE (NEGATIVE); METHAMPHETAMINES SCREEN, URINE NEGATIVE (NEGATIVE); OXYCODONE SCREEN,URINE NEGATIVE (NEGATIVE); PCP SCREEN,URINE NEGATIVE (NEGATIVE); TCA SCREEN,URINE NEGATIVE (NEGATIVE); THC SCREEN,URINE 50 NG/ML NEGATIVE (NEGATIVE)
[2024-06-10 06:35] VITALS: BP 156/96; PULSE 80
== END 2024-06-09 23:13 ==
LOC: KA.ED 21:23
DX: T46.1X2A Poisoning by calcium-channel blockers, intentional self-harm, initial encounter (principal); F10.920 Alcohol use, unspecified with intoxication, uncomplicated; I10 Essential (primary) hypertension; E78.00 Pure hypercholesterolemia, unspecified; J45.909 Unspecified asthma, uncomplicated; Z79.899 Other long term (current) drug therapy; Z91.048 Other nonmedicinal substance allergy status
CPT/HCPCS: 36415; 80053; 80143; 80305-QW; 80307; 83735; 85025; 93005; 96374; 96375; 99284; 99285-25; J2060; J2919

== ENCOUNTER 2024-06-28 03:19 | Inpatient (IN) | payer MEDICAID ==
[2024-06-28 03:48] LABS: BASOPHILS ABSOLUTE AUTO 0.03 10^3/uL (0.00-0.10); BASOPHILS PERCENT AUTO 0.6 % (0.0-1.0); EOSINOPHILS ABSOLUTE AUTO 0.05 10^3/uL (0.10-0.30); HEMATOCRIT 41.3 % (40.0-52.0); HEMOGLOBIN 14.9 g/dL (13.0-17.0); IMMATURE GRAN ABSOLUTE AUTO 0.01 10^3/uL (0.00-0.04); IMMATURE GRAN PERCENT AUTO 0.2 % (0.0-0.4); LYMPHOCYTES ABSOLUTE AUTO 1.24 10^3/uL (1.00-4.00); LYMPHOCYTES PERCENT AUTO 23.7 % (20.0-40.0); MEAN CORPUSCULAR HEMOGLOBIN 32.9 pg (27.0-31.0); MEAN CORPUSCULAR HGB CONC 36.1 g/dL (32.0-36.0); MEAN CORPUSCULAR VOLUME 91.2 fL (82.0-92.0); MEAN PLATELET VOLUME 9.2 fL (7.4-10.4); MONOCYTES ABSOLUTE AUTO 0.45 10^3/uL (0.10-0.80); MONOCYTES PERCENT AUTO 8.6 % (2.0-8.0); NEUTROPHILS ABSOLUTE AUTO 3.45 10^3/uL (2.50-7.00); NEUTROPHILS PERCENT AUTO 65.9 % (50.0-70.0); PLATELET COUNT,PLT 120 10^3/uL (150-400); RED BLOOD CELL COUNT 4.53 10^6/uL (4.50-6.00); RED CELL DISTRIBUTION WIDTH 14.4 % (11.5-14.5); WHITE BLOOD CELL COUNT,WBC 5.23 10^3/uL (5.00-10.00)
[2024-06-28 04:03] LABS: ALBUMIN 3.51 g/dL (3.40-5.00); ANION GAP 18.8 mmol/L (5-15); BILIRUBIN TOTAL 0.6 mg/dL (0.2-1.0); CALCIUM 8.3 mg/dL (8.7-10.3); CARBON DIOXIDE,CO2 25.3 mmol/L (21.0-32.0); CREATININE 0.76 mg/dL (0.51-1.17); EST CRCL DRUG DOSING (CG) 103.36 mL/min; POTASSIUM,K 3.1 mmol/L (3.5-5.1)
[2024-06-28] MEDS: Sodium Chloride 0.9% 1,000 ML IV ONE ×2 (04:14→04:51)
[2024-06-28 04:19] LABS: MAGNESIUM 1.7 mg/dL (1.8-2.4)
[2024-06-28 04:23] LABS: ACETAMINOPHEN < 0.0 ug/mL (10.0-30.0)
[2024-06-28 04:41] LABS: AMPHETAMINES SCREEN, URINE NEGATIVE (NEGATIVE); BARBITURATE SCREEN,URINE NEGATIVE (NEGATIVE); BENZODIAZEPINES SCREEN,URINE NEGATIVE (NEGATIVE); COCAINE METABOLITES,URINE NEGATIVE (NEGATIVE); METHADONE SCREEN, URINE NEGATIVE (NEGATIVE); METHAMPHETAMINES SCREEN, URINE NEGATIVE (NEGATIVE); OXYCODONE SCREEN,URINE NEGATIVE (NEGATIVE); PCP SCREEN,URINE NEGATIVE (NEGATIVE); TCA SCREEN,URINE NEGATIVE (NEGATIVE); THC SCREEN,URINE 50 NG/ML NEGATIVE (NEGATIVE)
[2024-06-28] MEDS ORDERED: Potassium Chloride 100 ML ONE (04:41)
[2024-06-28] MEDS ORDERED: NS IV SCH (04:45)
[2024-06-28] MEDS ORDERED: KCL IV SCH (04:45)
[2024-06-28] MEDS: Potassium Chloride 20 MEQ in Premix Bag 1 BAG IV ONE (04:51)
[2024-06-28] MEDS: Lisinopril 20 MG Tab PO ONE (05:09)
[2024-06-28] MEDS: Lisinopril 10 MG Tab PO ONE (05:37)
[2024-06-28] MEDS: Sodium Chloride 0.9% 1,000 ML IV SCH (07:13)
[2024-06-28] MEDS ORDERED: Polyethylene Glycol 3350 Powder 17 GM Packet PO PRN (10:11)
[2024-06-28] MEDS ORDERED: Ondansetron 4 MG Tab.DIS PO PRN (10:11)
[2024-06-28] MEDS ORDERED: Acetaminophen 325 MG Tab PO PRN (10:11)
[2024-06-28] MEDS ORDERED: Melatonin 3 MG Tab PO PRN (10:11)
[2024-06-28] MEDS ORDERED: PHENobarbital 32.4 MG Tab PO PRN (10:26)
[2024-06-28] MEDS ORDERED: PHENobarbital Sodium 65 MG/ML SDV IVPUSH PRN (10:26)
[2024-06-28] MEDS: Folic Acid 1 MG Tab PO SCH (10:46)
[2024-06-28] MEDS: Potassium Chloride 20 MEQ Tab.ER PO ONE (10:46)
[2024-06-28] MEDS: Enoxaparin 40 MG/0.4 ML Syringe SUBCUT SCH (10:51)
[2024-06-28] MEDS: Thiamine 100 MG Tab PO SCH (10:53)
[2024-06-28] MEDS ORDERED: Albuterol 8 GM Inhaler INH PRN (11:00)
[2024-06-28] MEDS ORDERED: hydrOXYzine HCl 25 MG Tab PO PRN (11:00)
[2024-06-28] MEDS: PHENobarbitaL sodium 260 MG in Sodium Chloride 0.9% 100 ML IV ONE (11:01)
[2024-06-28] MEDS: Magnesium Sulfate/Water Premix 2 GM in Premix Bag 1 BAG IV ONE (11:26)
[2024-06-28] MEDS ORDERED: Phenol 1.4% Oral Spray 177 ML Bottle MUCMEM PRN (11:27)
[2024-06-28] MEDS: Magnesium Oxide 500 MG Tab PO SCH (12:02)
[2024-06-28] MEDS: levETIRAcetam 500 MG Tab PO SCH (12:02)
[2024-06-28 12:03] VITALS: BP 138/85
[2024-06-28] MEDS: Metoprolol Succinate 25 MG Tab.ER PO SCH (12:03)
[2024-06-28 12:06] VITALS: PULSE 102
[2024-06-29] MEDS ORDERED: Nicotine 14 MG/24 Hr Patch TOP SCH (09:00)
[2024-06-29] MEDS ORDERED: amLODIPine 5 MG Tab PO SCH (09:00)
[2024-06-29] MEDS ORDERED: Lisinopril 20 MG Tab PO SCH (09:00)
[2024-06-29] MEDS ORDERED: Cyanocobalamin (Vitamin B12) 500 MCG Tab PO SCH (09:00)
== END 2024-06-28 13:18 | disposition left against medical advice (07) | DRG 894 ==
LOC: KA.ED 03:19 → KA.MS 05:20 → KA.ED 05:20
PROVIDERS: ADMIT Physician Assistant Surgical; ATTEND Internal Medicine
DX: F10.139 Alcohol abuse with withdrawal, unspecified (principal); J44.0 Chronic obstructive pulmonary disease with (acute) lower respiratory infection; R45.851 Suicidal ideations; Y90.8 Blood alcohol level of 240 mg/100 ml or more; H54.7 Unspecified visual loss; E78.00 Pure hypercholesterolemia, unspecified; I10 Essential (primary) hypertension; F41.9 Anxiety disorder, unspecified; G40.909 Epilepsy, unspecified, not intractable, without status epilepticus; F10.129 Alcohol abuse with intoxication, unspecified; J40 Bronchitis, not specified as acute or chronic; J44.89 Other specified chronic obstructive pulmonary disease; F32.A Depression, unspecified; E87.6 Hypokalemia; Z53.29 Procedure and treatment not carried out because of patient's decision for other reasons; Z91.048 Other nonmedicinal substance allergy status; Z91.09 Other allergy status, other than to drugs and biological substances; Z79.51 Long term (current) use of inhaled steroids; Z79.899 Other long term (current) drug therapy; Z90.89 Acquired absence of other organs; Z72.0 Tobacco use
CPT/HCPCS: 36415; 80053; 80143; 80179; 80305-QW; 80307; 83735; 85025; 96374; 99236-GT; 99284; 99284-25; A9270-GY; J1650; J2560; J3480; J3490; J7030; Q3014

== ENCOUNTER 2024-07-19 00:23 | Emergency (ER) | payer MEDICAID ==
[2024-07-19 00:28] VITALS: BP 160/106; PULSE 108
== END 2024-07-19 01:25 | disposition home or self-care (01) ==
LOC: KA.ED 00:23
DX: R07.81 Pleurodynia (principal); I10 Essential (primary) hypertension; J45.909 Unspecified asthma, uncomplicated; F17.210 Nicotine dependence, cigarettes, uncomplicated; Z90.89 Acquired absence of other organs; Z91.048 Other nonmedicinal substance allergy status; Z79.51 Long term (current) use of inhaled steroids; Z79.899 Other long term (current) drug therapy
CPT/HCPCS: 71101-RT; 99284

== ENCOUNTER 2024-07-25 12:40 | Observation (INO) | payer MEDICAID ==
[2024-07-25] MEDS ORDERED: Sodium Chloride 0.9% 10 ML Syringe FLUSH PRN (12:57)
[2024-07-25 13:04] LABS: HEMATOCRIT 38.7 % (40.0-52.0); HEMOGLOBIN 14.1 g/dL (13.0-17.0); MEAN CORPUSCULAR HEMOGLOBIN 33.8 pg (27.0-31.0); MEAN CORPUSCULAR HGB CONC 36.4 g/dL (32.0-36.0); MEAN CORPUSCULAR VOLUME 92.8 fL (82.0-92.0); MEAN PLATELET VOLUME 8.8 fL (7.4-10.4); PLATELET COUNT,PLT 106 10^3/uL (150-400); RED BLOOD CELL COUNT 4.17 10^6/uL (4.50-6.00); RED CELL DISTRIBUTION WIDTH 16.8 % (11.5-14.5); WHITE BLOOD CELL COUNT,WBC 10.01 10^3/uL (5.00-10.00)
[2024-07-25 13:18] LABS: LYMPHOCYTES ABSOLUTE MAN 0.2002; LYMPHOCYTES PERCENT MAN 2 % (20-40); MONOCYTES ABSOLUTE MAN 0.2002; MONOCYTES PERCENT MAN 2 % (2-8); NEUTROPHILS ABSOLUTE MAN 9.6096; SEG NEUTROPHILS PERCENT MAN 96 % (50-70)
[2024-07-25 13:19] LABS: PLATELET COUNT ESTIMATE DECREASED
[2024-07-25 13:22] LABS: ALANINE AMINOTRANSFERASE,ALT 107 U/L (14-63); ALBUMIN 3.13 g/dL (3.40-5.00); ALKALINE PHOSPHATASE 154 U/L (46-116); ANION GAP 20.7 mmol/L (5-15); ASPARTATE AMNIOTRANSFERASE,AST 231 U/L (15-37); BILIRUBIN TOTAL 1.2 mg/dL (0.2-1.0); BLOOD UREA NITROGEN,BUN 12 mg/dL (7-18); CARBON DIOXIDE,CO2 22.5 mmol/L (21.0-32.0); CHLORIDE,CL 99 mmol/L (98-107); CREATININE 0.67 mg/dL (0.51-1.17); ESTIMATED GFR 107 mL/min (>=60); ETHANOL BLOOD MEDICAL 106 mg/dL (<3); GLUCOSE RANDOM 156 mg/dL (70-140); LIPASE 62 U/L (16-77); POTASSIUM,K 3.2 mmol/L (3.5-5.1); PROTEIN TOTAL,TP 6.5 g/dL (6.4-8.2); SODIUM,NA 139 mmol/L (136-145)
[2024-07-25 14:01] LABS: APPEARANCE,URINE CLEAR (CLEAR); BILIRUBIN,URINE NEGATIVE (NEGATIVE); COLOR,URINE DARK YELLOW (YELLOW); GLUCOSE,URINE NEGATIVE (NEGATIVE); KETONES,URINE NEGATIVE (NEGATIVE); LEUKOCYTE ESTERASE,URINE NEGATIVE (NEGATIVE); NITRITE,URINE NEGATIVE (NEGATIVE); OCCULT BLOOD,URINE NEGATIVE (NEGATIVE); PROTEIN,URINE TRACE mg/dL (NEGATIVE); UROBILINOGEN,URINE 0.2 E.U./dL (0.2-1.0)
[2024-07-25] MEDS: Sodium Chloride 0.9% 1,000 ML IV ONE (14:04)
[2024-07-25] MEDS: LORazepam 2 MG/ML SDV IVPUSH ONE (14:04)
[2024-07-25 14:08] LABS: BACTERIA,URINE RARE /HPF (NONE TO FEW); EPITHELIAL CELLS,URINE RARE /LPF; RBC,URINE 0-5 /HPF (0-5); WBC,URINE 0-5 /HPF (0-5)
[2024-07-25] MEDS: Folic Acid 50 MG/10 ML MDV IV STA (14:43)
[2024-07-25] MEDS: Thiamine 100 MG in Sodium Chloride 0.9% 100 ML IV ONE (14:44)
[2024-07-25] MEDS: Magnesium Sulfate/Water Premix 2 GM in Premix Bag 1 BAG IV ONE (14:48)
[2024-07-25] MEDS: D5 1/2 NS w/ 40 mEq/L KCl 1,000 ML IV SCH (15:15)
[2024-07-25] MEDS ORDERED: Acetaminophen 325 MG Tab PO PRN (16:52)
[2024-07-25] MEDS ORDERED: Ondansetron 4 MG/2 ML SDV IV PRN (16:52)
[2024-07-25] MEDS ORDERED: Labetalol 100 MG/20 ML MDV IVPUSH PRN (17:51)
[2024-07-25] MEDS: LORazepam 0.5 MG Tab PO PRN (18:45)
[2024-07-25] MEDS: levETIRAcetam 500 MG Tab PO SCH (20:05)
[2024-07-25] MEDS: NS + KCl 20mEq/L 1,000 ML IV SCH (21:59)
[2024-07-25] MEDS: LORazepam 2 MG/ML SDV IVPUSH PRN (22:34)
[2024-07-26 07:24] LABS: HEMATOCRIT 36.6 % (40.0-52.0); HEMOGLOBIN 13.3 g/dL (13.0-17.0); MEAN CORPUSCULAR HGB CONC 36.3 g/dL (32.0-36.0); MEAN CORPUSCULAR VOLUME 93.6 fL (82.0-92.0); MEAN PLATELET VOLUME 8.9 fL (7.4-10.4); PLATELET COUNT,PLT 97 10^3/uL (150-400); RED BLOOD CELL COUNT 3.91 10^6/uL (4.50-6.00); RED CELL DISTRIBUTION WIDTH 16.7 % (11.5-14.5); WHITE BLOOD CELL COUNT,WBC 5.14 10^3/uL (5.00-10.00)
[2024-07-26 07:47] LABS: ANION GAP 15.3 mmol/L (5-15); BILIRUBIN TOTAL 2.3 mg/dL (0.2-1.0); CALCIUM 7.7 mg/dL (8.7-10.3); CARBON DIOXIDE,CO2 24.5 mmol/L (21.0-32.0); CREATININE 0.6 mg/dL (0.51-1.17); EST CRCL DRUG DOSING (CG) 138.6 mL/min; MAGNESIUM 1.5 mg/dL (1.8-2.4); POTASSIUM,K 3.8 mmol/L (3.5-5.1); PROTEIN TOTAL,TP 6.4 g/dL (6.4-8.2)
[2024-07-26] MEDS: amLODIPine 5 MG Tab PO SCH (08:19)
[2024-07-26] MEDS: Losartan 50 MG Tab PO SCH (08:20)
[2024-07-26] MEDS: Metoprolol Succinate 25 MG Tab.ER PO SCH (08:21)
[2024-07-26] MEDS: Thiamine 100 MG Tab PO SCH (08:21)
[2024-07-26] MEDS: Folic Acid 1 MG Tab PO SCH (08:22)
[2024-07-26] MEDS: Sodium Chloride 0.9% 50 ML IV SCH (14:00)
[2024-07-26] MEDS: Iopamidol 755 Mg/ML 100 ML Bottle IV ONE (14:13)
[2024-07-26] MEDS: Nicotine 21 MG/24 Hr Patch TRDERM SCH (22:08)
[2024-07-27] MEDS: LORazepam 2 MG/ML SDV IVPUSH PRN (00:44)
[2024-07-27] MEDS ORDERED: LORazepam 2 MG/ML SDV IVPUSH PRN (12:30)
== END 2024-07-27 03:35 | disposition home or self-care (01) ==
LOC: KA.ED 12:40 → KA.MS 15:14
PROVIDERS: ADMIT Internal Medicine; ATTEND Internal Medicine
DX: F10.239 Alcohol dependence with withdrawal, unspecified (principal); K70.10 Alcoholic hepatitis without ascites; R55 Syncope and collapse; G40.909 Epilepsy, unspecified, not intractable, without status epilepticus; I16.0 Hypertensive urgency; I10 Essential (primary) hypertension; E87.6 Hypokalemia; J45.909 Unspecified asthma, uncomplicated; E78.00 Pure hypercholesterolemia, unspecified; F17.210 Nicotine dependence, cigarettes, uncomplicated; Z79.899 Other long term (current) drug therapy; Z91.048 Other nonmedicinal substance allergy status
CPT/HCPCS: 36415; 71045; 74177; 80053; 80307; 81001; 83605; 83690; 83735; 84484; 85025; 85027; 93005; 93010; 99223-GT; 99233-GT; 99238-GT; 99284; A9270-GY; J2060; J3411; J3475; J3480; J3490; J7030; Q3014; Q9967

== ENCOUNTER 2024-08-19 14:11 | Emergency (ER) | payer MEDICAID ==
[2024-08-19 14:42] LABS: BASOPHILS ABSOLUTE AUTO 0.02 10^3/uL (0.00-0.10); BASOPHILS PERCENT AUTO 0.3 % (0.0-1.0); EOSINOPHILS ABSOLUTE AUTO 0.01 10^3/uL (0.10-0.30); EOSINOPHILS PERCENT AUTO 0.1 % (1.0-3.0); HEMATOCRIT 39.7 % (40.0-52.0); HEMOGLOBIN 14.2 g/dL (13.0-17.0); IMMATURE GRAN ABSOLUTE AUTO 0.02 10^3/uL (0.00-0.04); IMMATURE GRAN PERCENT AUTO 0.3 % (0.0-0.4); LYMPHOCYTES ABSOLUTE AUTO 0.59 10^3/uL (1.00-4.00); LYMPHOCYTES PERCENT AUTO 8.1 % (20.0-40.0); MEAN CORPUSCULAR HEMOGLOBIN 34.6 pg (27.0-31.0); MEAN CORPUSCULAR HGB CONC 35.8 g/dL (32.0-36.0); MEAN CORPUSCULAR VOLUME 96.8 fL (82.0-92.0); MEAN PLATELET VOLUME 9.1 fL (7.4-10.4); MONOCYTES ABSOLUTE AUTO 0.36 10^3/uL (0.10-0.80); MONOCYTES PERCENT AUTO 4.9 % (2.0-8.0); NEUTROPHILS PERCENT AUTO 86.3 % (50.0-70.0); PLATELET COUNT,PLT 102 10^3/uL (150-400); RED CELL DISTRIBUTION WIDTH 15.5 % (11.5-14.5)
[2024-08-19] MEDS: Sodium Chloride 0.9% 1,000 ML IV ONE (14:49)
[2024-08-19 14:56] LABS: ALANINE AMINOTRANSFERASE,ALT 65 U/L (14-63); ALBUMIN 3.52 g/dL (3.40-5.00); ALKALINE PHOSPHATASE 197 U/L (46-116); ANION GAP 25.3 mmol/L (5-15); ASPARTATE AMNIOTRANSFERASE,AST 129 U/L (15-37); BLOOD UREA NITROGEN,BUN 7 mg/dL (7-18); CALCIUM 8.3 mg/dL (8.7-10.3); CARBON DIOXIDE,CO2 20.7 mmol/L (21.0-32.0); CHLORIDE,CL 96 mmol/L (98-107); CREATINE KINASE,CK 90 U/L (26-276); CREATININE 0.97 mg/dL (0.51-1.17); EST CRCL DRUG DOSING (CG) 85.73 mL/min; GLUCOSE RANDOM 179 mg/dL (70-140); PROTEIN TOTAL,TP 6.9 g/dL (6.4-8.2); SODIUM,NA 139 mmol/L (136-145)
[2024-08-19 14:57] LABS: ESTIMATED GFR 89 mL/min (>=60); ETHANOL BLOOD MEDICAL < 3 mg/dL (<3)
[2024-08-19] MEDS: Ondansetron 4 MG/2 ML SDV IVPUSH ONE (15:00)
[2024-08-19 15:02] LABS: INR 1.1 (0.9-1.1); PROTHROMBIN TIME 11.6 SEC (9.1-12.0)
[2024-08-19] MEDS: Lidocaine 1% with EPINEPHrine 1:100,000 20 ML MDV ONE (15:08)
[2024-08-19] MEDS: fentaNYL 100 MCG/2 ML SDV IVPUSH ONE (15:08)
[2024-08-19] MEDS: cefTRIAXone 1 GM Vial IVPUSH ONE (15:35)
[2024-08-19] MEDS ORDERED: cefTRIAXone 1 GM in Sodium Chloride 0.9% 50 ML IV ONE (15:36)
[2024-08-19] MEDS ORDERED: Potassium Chloride 40 MEQ in Premix Bag 1 BAG IV ONE (15:48)
[2024-08-19] MEDS: Potassium Chloride 10 MEQ Tab.ER PO ONE (16:05)
[2024-08-20] MEDS: cefTRIAXone 1 GM Vial IM ONE (10:52)
== END 2024-08-19 16:15 | disposition home or self-care (01) ==
LOC: KA.ED 14:11
DX: S01.01XA Laceration without foreign body of scalp, initial encounter (principal); E87.6 Hypokalemia; I10 Essential (primary) hypertension; E78.00 Pure hypercholesterolemia, unspecified; Z91.048 Other nonmedicinal substance allergy status; Z91.018 Allergy to other foods; Z79.899 Other long term (current) drug therapy; W18.39XA Other fall on same level, initial encounter; Y93.89 Activity, other specified
CPT/HCPCS: 12002; 36415; 70450; 72125; 80053; 80307; 82550; 85025; 85610; 96361; 96374; 96375; 99284-25; A9270-GY; J0696; J2405; J3010; J3490; J7030

== ENCOUNTER 2024-10-04 15:49 | Inpatient (IN) | payer MEDICAID ==
[2024-10-04 16:47] LABS: BASOPHILS ABSOLUTE AUTO 0.03 10^3/uL (0.00-0.10); BASOPHILS PERCENT AUTO 0.3 % (0.0-1.0); HEMATOCRIT 41.2 % (40.0-52.0); HEMOGLOBIN 14.4 g/dL (13.0-17.0); IMMATURE GRAN ABSOLUTE AUTO 0.02 10^3/uL (0.00-0.04); IMMATURE GRAN PERCENT AUTO 0.2 % (0.0-0.4); LYMPHOCYTES ABSOLUTE AUTO 0.77 10^3/uL (1.00-4.00); MEAN CORPUSCULAR HEMOGLOBIN 35.7 pg (27.0-31.0); MEAN CORPUSCULAR VOLUME 102.2 fL (82.0-92.0); MEAN PLATELET VOLUME 8.7 fL (7.4-10.4); MONOCYTES ABSOLUTE AUTO 0.55 10^3/uL (0.10-0.80); MONOCYTES PERCENT AUTO 5.7 % (2.0-8.0); NEUTROPHILS ABSOLUTE AUTO 8.29 10^3/uL (2.50-7.00); NEUTROPHILS PERCENT AUTO 85.8 % (50.0-70.0); PLATELET COUNT,PLT 246 10^3/uL (150-400); RED BLOOD CELL COUNT 4.03 10^6/uL (4.50-6.00); RED CELL DISTRIBUTION WIDTH 13.3 % (11.5-14.5); WHITE BLOOD CELL COUNT,WBC 9.66 10^3/uL (5.00-10.00)
[2024-10-04] MEDS: LORazepam 2 MG/ML SDV IVPUSH ONE (16:55)
[2024-10-04] MEDS: Sodium Chloride 0.9% 1,000 ML IV ONE ×2 (16:55→18:35)
[2024-10-04 17:05] LABS: ALANINE AMINOTRANSFERASE,ALT 55 U/L (14-63); ALBUMIN 3.58 g/dL (3.40-5.00); ALKALINE PHOSPHATASE 136 U/L (46-116); ASPARTATE AMNIOTRANSFERASE,AST 86 U/L (15-37); BILIRUBIN TOTAL 1.4 mg/dL (0.2-1.0); BLOOD UREA NITROGEN,BUN 11 mg/dL (7-18); CALCIUM 8.7 mg/dL (8.7-10.3); CARBON DIOXIDE,CO2 27.9 mmol/L (21.0-32.0); CHLORIDE,CL 92 mmol/L (98-107); CREATININE 0.99 mg/dL (0.51-1.17); EST CRCL DRUG DOSING (CG) 75.42 mL/min; ESTIMATED GFR 87 mL/min (>=60); ETHANOL BLOOD MEDICAL < 3 mg/dL (<3); GLUCOSE RANDOM 116 mg/dL (70-140); MAGNESIUM 1.4 mg/dL (1.8-2.4); POTASSIUM,K 2.7 mmol/L (3.5-5.1); PROTEIN TOTAL,TP 7.5 g/dL (6.4-8.2)
[2024-10-04 17:11] LABS: ANION GAP 14.8 mmol/L (5-15); SODIUM,NA 132 mmol/L (136-145)
[2024-10-04] MEDS: Potassium Chloride 20 MEQ in Premix Bag 1 BAG IV ONE (18:00)
[2024-10-04] MEDS: Magnesium Sulf/Wat 2 GM/50 mL 2 GM in Premix Bag 1 BAG IV ONE (18:05)
[2024-10-04] MEDS: Nicotine 21 MG/24 Hr Patch TRDERM ONE (18:27)
[2024-10-04] MEDS ORDERED: LORazepam 2 MG/ML SDV IVPUSH PRN (22:16)
[2024-10-04] MEDS: Potassium Chloride 20 MEQ Tab.ER PO ONE (23:12)
[2024-10-04] MEDS: Menthol Lozenge PO PRN (23:29)
[2024-10-04 23:43] LABS: ANION GAP 15.8 mmol/L (5-15); CALCIUM 7.7 mg/dL (8.7-10.3); CARBON DIOXIDE,CO2 21.9 mmol/L (21.0-32.0); CREATININE 0.81 mg/dL (0.51-1.17); EST CRCL DRUG DOSING (CG) 92.18 mL/min; POTASSIUM,K 2.7 mmol/L (3.5-5.1)
[2024-10-05] MEDS ORDERED: hydrOXYzine HCl 25 MG Tab PO PRN (03:42)
[2024-10-05] MEDS: Sodium Chloride 0.9% 1,000 ML IV SCH (04:29)
[2024-10-05] MEDS: Albuterol 8 GM Inhaler INH PRN (04:43)
[2024-10-05 07:30] LABS: BASOPHILS ABSOLUTE AUTO 0.04 10^3/uL (0.00-0.10); BASOPHILS PERCENT AUTO 0.7 % (0.0-1.0); EOSINOPHILS ABSOLUTE AUTO 0.02 10^3/uL (0.10-0.30); EOSINOPHILS PERCENT AUTO 0.3 % (1.0-3.0); HEMATOCRIT 32.5 % (40.0-52.0); HEMOGLOBIN 11.5 g/dL (13.0-17.0); IMMATURE GRAN ABSOLUTE AUTO 0.01 10^3/uL (0.00-0.04); IMMATURE GRAN PERCENT AUTO 0.2 % (0.0-0.4); LYMPHOCYTES ABSOLUTE AUTO 0.62 10^3/uL (1.00-4.00); LYMPHOCYTES PERCENT AUTO 10.2 % (20.0-40.0); MEAN CORPUSCULAR HEMOGLOBIN 36.7 pg (27.0-31.0); MEAN CORPUSCULAR HGB CONC 35.4 g/dL (32.0-36.0); MEAN CORPUSCULAR VOLUME 103.8 fL (82.0-92.0); MEAN PLATELET VOLUME 8.8 fL (7.4-10.4); MONOCYTES PERCENT AUTO 6.6 % (2.0-8.0); NEUTROPHILS ABSOLUTE AUTO 5.01 10^3/uL (2.50-7.00); PLATELET COUNT,PLT 186 10^3/uL (150-400); RED BLOOD CELL COUNT 3.13 10^6/uL (4.50-6.00); RED CELL DISTRIBUTION WIDTH 13.4 % (11.5-14.5)
[2024-10-05 07:38] LABS: HCO3 VENOUS,POC 23 mmol/L (22-29); O2 SATURATION VENOUS,POC 90 %; PCO2 VENOUS,POC 32 mmHg (41-51); PH VENOUS,POC 7.46 pH (7.32-7.43); PO2 VENOUS,POC 55 mmHg
[2024-10-05 07:49] LABS: ANION GAP 11.1 mmol/L (5-15); CALCIUM 7.4 mg/dL (8.7-10.3); CARBON DIOXIDE,CO2 24.7 mmol/L (21.0-32.0); CREATININE 0.7 mg/dL (0.51-1.17); EST CRCL DRUG DOSING (CG) 103.49 mL/min; MAGNESIUM 1.6 mg/dL (1.8-2.4); POTASSIUM,K 2.8 mmol/L (3.5-5.1)
[2024-10-05] MEDS: Fenofibrate,Micronized 67 MG Cap PO SCH (08:31)
[2024-10-05] MEDS: Folic Acid 1 MG Tab PO SCH (08:31)
[2024-10-05] MEDS: Cyanocobalamin (Vitamin B12) 500 MCG Tab PO SCH (08:32)
[2024-10-05] MEDS: levETIRAcetam 500 MG Tab PO SCH (08:32)
[2024-10-05] MEDS: Losartan 50 MG Tab PO SCH (08:32)
[2024-10-05] MEDS: Thiamine 100 MG Tab PO SCH (08:32)
[2024-10-05] MEDS: Enoxaparin 40 MG/0.4 ML Syringe SUBCUT SCH (08:33)
[2024-10-05] MEDS: Nicotine 21 MG/24 Hr Patch TOP SCH (08:35)
[2024-10-05] MEDS ORDERED: Non-Formulary Medication 1 Each (Betamethasone Dipropionate [Diprosone 0.05% Crm] 15 GM Tu TOP SCH (09:00)
[2024-10-05] MEDS ORDERED: Nicotine 14 MG/24 Hr Patch TOP SCH (09:00)
[2024-10-05] MEDS: Magnesium Sulf/Wat 2 GM/50 mL 2 GM in Premix Bag 1 BAG IV ONE (10:13)
[2024-10-05] MEDS: Potassium Chloride 20 MEQ Tab.ER PO SCH (10:13)
[2024-10-05 17:02] LABS: BASOPHILS ABSOLUTE AUTO 0.04 10^3/uL (0.00-0.10); BASOPHILS PERCENT AUTO 0.8 % (0.0-1.0); EOSINOPHILS ABSOLUTE AUTO 0.03 10^3/uL (0.10-0.30); EOSINOPHILS PERCENT AUTO 0.6 % (1.0-3.0); HEMATOCRIT 33.9 % (40.0-52.0); HEMOGLOBIN 11.8 g/dL (13.0-17.0); LYMPHOCYTES ABSOLUTE AUTO 0.78 10^3/uL (1.00-4.00); LYMPHOCYTES PERCENT AUTO 16.4 % (20.0-40.0); MEAN CORPUSCULAR HEMOGLOBIN 36.9 pg (27.0-31.0); MEAN CORPUSCULAR HGB CONC 34.8 g/dL (32.0-36.0); MEAN CORPUSCULAR VOLUME 105.9 fL (82.0-92.0); MEAN PLATELET VOLUME 8.7 fL (7.4-10.4); MONOCYTES PERCENT AUTO 6.3 % (2.0-8.0); NEUTROPHILS ABSOLUTE AUTO 3.62 10^3/uL (2.50-7.00); NEUTROPHILS PERCENT AUTO 75.9 % (50.0-70.0); PLATELET COUNT,PLT 201 10^3/uL (150-400); RED CELL DISTRIBUTION WIDTH 13.5 % (11.5-14.5); WHITE BLOOD CELL COUNT,WBC 4.77 10^3/uL (5.00-10.00)
[2024-10-05 17:28] LABS: ANION GAP 10.9 mmol/L (5-15); CALCIUM 7.6 mg/dL (8.7-10.3); CREATININE 0.71 mg/dL (0.51-1.17); EST CRCL DRUG DOSING (CG) 102.03 mL/min; MAGNESIUM 2.2 mg/dL (1.8-2.4); POTASSIUM,K 3.9 mmol/L (3.5-5.1)
[2024-10-05 18:37] VITALS: BP 128/81; PULSE 101
== END 2024-10-05 18:40 | disposition home or self-care (01) | DRG 101 ==
LOC: KA.ED 15:49 → KA.MS 21:01
PROVIDERS: ADMIT Physician Assistant Surgical; ATTEND Physician Assistant Surgical
DX: G40.909 Epilepsy, unspecified, not intractable, without status epilepticus (principal); E87.1 Hypo-osmolality and hyponatremia; F10.239 Alcohol dependence with withdrawal, unspecified; H54.7 Unspecified visual loss; E78.00 Pure hypercholesterolemia, unspecified; I10 Essential (primary) hypertension; J45.909 Unspecified asthma, uncomplicated; F41.9 Anxiety disorder, unspecified; F32.A Depression, unspecified; E86.0 Dehydration; E83.42 Hypomagnesemia; E87.6 Hypokalemia; J44.9 Chronic obstructive pulmonary disease, unspecified; Z79.899 Other long term (current) drug therapy; Z90.49 Acquired absence of other specified parts of digestive tract; Z72.0 Tobacco use; Z88.8 Allergy status to other drugs, medicaments and biological substances
CPT/HCPCS: 36415; 80048; 80053; 80307; 82140; 82803; 83735; 85025; A9270-GY; J1650; J2060; J3475; J3480; J7030; Q3014

== ENCOUNTER 2024-10-22 18:09 | Inpatient (IN) | payer MEDICAID ==
[2024-10-22] MEDS ORDERED: Sodium Chloride 0.9% 10 ML Syringe FLUSH PRN (18:40)
[2024-10-22 19:00] LABS: BASOPHILS ABSOLUTE AUTO 0.04 10^3/uL (0.00-0.10); BASOPHILS PERCENT AUTO 0.4 % (0.0-1.0); EOSINOPHILS ABSOLUTE AUTO 0.02 10^3/uL (0.10-0.30); EOSINOPHILS PERCENT AUTO 0.2 % (1.0-3.0); HEMOGLOBIN 14.9 g/dL (13.0-17.0); IMMATURE GRAN ABSOLUTE AUTO 0.01 10^3/uL (0.00-0.04); IMMATURE GRAN PERCENT AUTO 0.1 % (0.0-0.4); LYMPHOCYTES ABSOLUTE AUTO 0.94 10^3/uL (1.00-4.00); LYMPHOCYTES PERCENT AUTO 10.2 % (20.0-40.0); MEAN CORPUSCULAR HEMOGLOBIN 35.6 pg (27.0-31.0); MEAN CORPUSCULAR HGB CONC 35.5 g/dL (32.0-36.0); MEAN CORPUSCULAR VOLUME 100.5 fL (82.0-92.0); MONOCYTES ABSOLUTE AUTO 0.44 10^3/uL (0.10-0.80); MONOCYTES PERCENT AUTO 4.8 % (2.0-8.0); NEUTROPHILS ABSOLUTE AUTO 7.78 10^3/uL (2.50-7.00); NEUTROPHILS PERCENT AUTO 84.3 % (50.0-70.0); PLATELET COUNT,PLT 209 10^3/uL (150-400); RED BLOOD CELL COUNT 4.18 10^6/uL (4.50-6.00); WHITE BLOOD CELL COUNT,WBC 9.23 10^3/uL (5.00-10.00)
[2024-10-22 19:19] LABS: ALBUMIN 3.12 g/dL (3.40-5.00); ANION GAP 18.5 mmol/L (5-15); BILIRUBIN TOTAL 1.4 mg/dL (0.2-1.0); CALCIUM 8.4 mg/dL (8.7-10.3); CREATININE 0.66 mg/dL (0.51-1.17); EST CRCL DRUG DOSING (CG) 126.77 mL/min; MAGNESIUM 1.5 mg/dL (1.8-2.4); POTASSIUM,K 3.5 mmol/L (3.5-5.1)
[2024-10-22 20:07] LABS: AMPHETAMINES SCREEN, URINE NEGATIVE (NEGATIVE); BARBITURATE SCREEN,URINE NEGATIVE (NEGATIVE); BENZODIAZEPINES SCREEN,URINE NEGATIVE (NEGATIVE); COCAINE METABOLITES,URINE NEGATIVE (NEGATIVE); METHADONE SCREEN, URINE NEGATIVE (NEGATIVE); METHAMPHETAMINES SCREEN, URINE NEGATIVE (NEGATIVE); OXYCODONE SCREEN,URINE NEGATIVE (NEGATIVE); PCP SCREEN,URINE NEGATIVE (NEGATIVE); TCA SCREEN,URINE NEGATIVE (NEGATIVE); THC SCREEN,URINE 50 NG/ML NEGATIVE (NEGATIVE)
[2024-10-22] MEDS: Lactated Ringers 1,000 ML IV SCH (20:16)
[2024-10-22] MEDS: Thiamine 200 MG/2 ML MDV IVPUSH ONE (20:17)
[2024-10-22] MEDS: Magnesium Sulf/Wat 2 GM/50 mL 2 GM in Premix Bag 1 BAG IV ONE (20:26)
[2024-10-22] MEDS ORDERED: hydrOXYzine HCl 25 MG Tab PO PRN (22:36)
[2024-10-22] MEDS ORDERED: Ondansetron 4 MG/2 ML SDV IV PRN (22:38)
[2024-10-22] MEDS: LORazepam 0.5 MG Tab PO PRN (23:13)
[2024-10-22] MEDS: Losartan 50 MG Tab PO SCH (23:15)
[2024-10-22] MEDS: Nicotine 14 MG/24 Hr Patch TOP SCH (23:16)
[2024-10-22] MEDS: levETIRAcetam 500 MG Tab PO SCH (23:16)
[2024-10-22] MEDS: Albuterol 8 GM Inhaler INH PRN (23:19)
[2024-10-23] MEDS: traZODone 50 MG Tab PO SCH (03:03)
[2024-10-23 07:53] LABS: ANION GAP 11.6 mmol/L (5-15); CALCIUM 7.9 mg/dL (8.7-10.3); CARBON DIOXIDE,CO2 27.3 mmol/L (21.0-32.0); CREATININE 0.64 mg/dL (0.51-1.17); EST CRCL DRUG DOSING (CG) 130.73 mL/min; MAGNESIUM 1.5 mg/dL (1.8-2.4); POTASSIUM,K 3.9 mmol/L (3.5-5.1)
[2024-10-23] MEDS: Magnesium Sulf/Wat 2 GM/50 mL 2 GM in Premix Bag 1 BAG IV ONE (10:01)
[2024-10-23] MEDS: Sodium Chloride 0.9% 100 ML IV SCH (10:01)
[2024-10-23] MEDS: Fenofibrate,Micronized 67 MG Cap PO SCH (10:02)
[2024-10-23] MEDS: Cyanocobalamin (Vitamin B12) 500 MCG Tab PO SCH (10:03)
[2024-10-23] MEDS: Thiamine 100 MG Tab PO SCH (10:03)
[2024-10-23] MEDS: Folic Acid 1 MG Tab PO SCH (10:03)
[2024-10-23] MEDS: Fish Oil/Omega-3 Fatty Acids 1 Gm Cap PO SCH (10:03)
[2024-10-23] MEDS: Enoxaparin 40 MG/0.4 ML Syringe SUBCUT SCH (10:04)
[2024-10-23] MEDS ORDERED: Sodium Chloride 0.9% 1,000 ML IV SCH (11:30)
[2024-10-23] MEDS: chlordiazePOXIDE 25 MG Cap PO SCH (12:30)
[2024-10-24 07:35] LABS: ANION GAP 12.9 mmol/L (5-15); CALCIUM 7.9 mg/dL (8.7-10.3); CARBON DIOXIDE,CO2 27.6 mmol/L (21.0-32.0); CREATININE 0.75 mg/dL (0.51-1.17); EST CRCL DRUG DOSING (CG) 111.56 mL/min; POTASSIUM,K 3.5 mmol/L (3.5-5.1)
[2024-10-24] MEDS: chlordiazePOXIDE 25 MG Cap PO SCH (13:50)
[2024-10-24] MEDS ORDERED: Lactulose Soln 10 GM/15 ML 30 ML UD Cup PO SCH (14:00)
[2024-10-25] MEDS: Menthol Lozenge PO PRN (04:54)
[2024-10-25] MEDS: Thiamine 500 MG in Sodium Chloride 0.9% 100 ML IV SCH ×2 (17:29→17:30)
[2024-10-25] MEDS ORDERED: Albuterol/Ipratropium 3.0-0.5 MG/3 ML Neb Soln NEB PRN (21:10)
[2024-10-25] MEDS: LORazepam 0.5 MG Tab PO PRN (21:33)
[2024-10-25] MEDS: guaiFENesin/Dextromethorphan 100-10 MG/5 ML Soln 5 ML Cup PO PRN (22:55)
[2024-10-25] MEDS: Melatonin 3 MG Tab PO PRN (23:14)
[2024-10-26] MEDS: Thiamine 200 MG/2 ML MDV ONE (03:00)
[2024-10-27] MEDS ORDERED: Ibuprofen 200 MG Tab PO PRN (09:03)
[2024-10-28] MEDS: Thiamine 250 MG in Sodium Chloride 0.9% 100 ML IV SCH (14:46)
[2024-10-29] MEDS ORDERED: Menthol Lozenge PO PRN (08:26)
[2024-10-29] MEDS: Thiamine 250 MG in Sodium Chloride 0.9% 100 ML IV SCH (14:17)
[2024-10-30] MEDS: Thiamine 100 MG Tab PO SCH (21:23)
[2024-11-01 12:57] VITALS: BP 142/77; PULSE 94
== END 2024-11-01 13:05 | disposition home health service (06) | DRG 775 ==
LOC: KA.ED 18:09 → KA.MS 21:55
PROVIDERS: ADMIT Family Medicine; ATTEND Family Medicine
DX: F10.220 Alcohol dependence with intoxication, uncomplicated (principal); R45.851 Suicidal ideations; F32.2 Major depressive disorder, single episode, severe without psychotic features; J44.0 Chronic obstructive pulmonary disease with (acute) lower respiratory infection; F10.230 Alcohol dependence with withdrawal, uncomplicated; E78.00 Pure hypercholesterolemia, unspecified; I10 Essential (primary) hypertension; K21.9 Gastro-esophageal reflux disease without esophagitis; F41.9 Anxiety disorder, unspecified; F17.210 Nicotine dependence, cigarettes, uncomplicated; E83.42 Hypomagnesemia; G40.909 Epilepsy, unspecified, not intractable, without status epilepticus; E86.0 Dehydration; H54.7 Unspecified visual loss; Y90.7 Blood alcohol level of 200-239 mg/100 ml; F43.21 Adjustment disorder with depressed mood; J20.9 Acute bronchitis, unspecified; Z79.899 Other long term (current) drug therapy; Z79.51 Long term (current) use of inhaled steroids; Z86.16 Personal history of COVID-19; Z90.89 Acquired absence of other organs
CPT/HCPCS: 36415; 71045; 80048; 80053; 80305-QW; 80307; 82140; 83735; 83880; 84484; 85025; 93010; 96125-GN; 96365; 96375; 97110-GO; 97161-GP; 97165-GO; 97535-GO; 99223-GT; 99232-GT; 99233-GT; 99239-GT; 99284; 99285-25; A9270-GY; J1650; J3411; J3475; J7120; Q3014

== ENCOUNTER 2024-11-11 22:16 | Emergency (ER) | payer MEDICAID ==
[2024-11-11] MEDS: Sodium Chloride 0.9% 10 ML Syringe FLUSH PRN (22:39)
[2024-11-11 22:46] LABS: BASOPHILS ABSOLUTE AUTO 0.06 10^3/uL (0.00-0.10); EOSINOPHILS ABSOLUTE AUTO 0.07 10^3/uL (0.10-0.30); EOSINOPHILS PERCENT AUTO 1.2 % (1.0-3.0); HEMATOCRIT 38.1 % (40.0-52.0); HEMOGLOBIN 13.1 g/dL (13.0-17.0); LYMPHOCYTES ABSOLUTE AUTO 1.46 10^3/uL (1.00-4.00); LYMPHOCYTES PERCENT AUTO 24.8 % (20.0-40.0); MEAN CORPUSCULAR HEMOGLOBIN 33.9 pg (27.0-31.0); MEAN CORPUSCULAR HGB CONC 34.4 g/dL (32.0-36.0); MEAN CORPUSCULAR VOLUME 98.7 fL (82.0-92.0); MEAN PLATELET VOLUME 8.3 fL (7.4-10.4); MONOCYTES ABSOLUTE AUTO 0.41 10^3/uL (0.10-0.80); NEUTROPHILS ABSOLUTE AUTO 3.88 10^3/uL (2.50-7.00); PLATELET COUNT,PLT 368 10^3/uL (150-400); RED BLOOD CELL COUNT 3.86 10^6/uL (4.50-6.00); RED CELL DISTRIBUTION WIDTH 12.7 % (11.5-14.5); WHITE BLOOD CELL COUNT,WBC 5.88 10^3/uL (5.00-10.00)
[2024-11-11] MEDS: Sodium Chloride 0.9% 1,000 ML IV ONE (22:46)
[2024-11-11 22:50] LABS: AMPHETAMINES SCREEN, URINE NEGATIVE (NEGATIVE); BARBITURATE SCREEN,URINE NEGATIVE (NEGATIVE); BENZODIAZEPINES SCREEN,URINE POSITIVE (NEGATIVE); COCAINE METABOLITES,URINE NEGATIVE (NEGATIVE); METHADONE SCREEN, URINE NEGATIVE (NEGATIVE); METHAMPHETAMINES SCREEN, URINE NEGATIVE (NEGATIVE); OXYCODONE SCREEN,URINE NEGATIVE (NEGATIVE); PCP SCREEN,URINE NEGATIVE (NEGATIVE); TCA SCREEN,URINE NEGATIVE (NEGATIVE); THC SCREEN,URINE 50 NG/ML NEGATIVE (NEGATIVE)
[2024-11-11 23:03] LABS: ANION GAP 16.4 mmol/L (5-15); BLOOD UREA NITROGEN,BUN 13 mg/dL (7-18); CALCIUM 8.7 mg/dL (8.7-10.3); CARBON DIOXIDE,CO2 23.1 mmol/L (21.0-32.0); CHLORIDE,CL 101 mmol/L (98-107); CREATININE 0.84 mg/dL (0.51-1.17); GLUCOSE RANDOM 91 mg/dL (70-140); POTASSIUM,K 3.5 mmol/L (3.5-5.1); SODIUM,NA 137 mmol/L (136-145)
[2024-11-11 23:04] LABS: ESTIMATED GFR 100 mL/min (>=60)
[2024-11-11 23:06] LABS: ETHANOL BLOOD MEDICAL 277 mg/dL (<3)
== END 2024-11-12 07:48 | disposition home or self-care (01) ==
LOC: KA.ED 22:16
DX: F10.220 Alcohol dependence with intoxication, uncomplicated (principal); F32.2 Major depressive disorder, single episode, severe without psychotic features; I10 Essential (primary) hypertension; E78.00 Pure hypercholesterolemia, unspecified; J45.909 Unspecified asthma, uncomplicated; K21.9 Gastro-esophageal reflux disease without esophagitis; Z86.16 Personal history of COVID-19; Z79.899 Other long term (current) drug therapy; Z91.048 Other nonmedicinal substance allergy status
CPT/HCPCS: 36415; 80048; 80305; 80307; 85025; 96360; 99285; J7030; 99284

== ENCOUNTER 2025-01-28 12:06 | Emergency (ER) | payer MEDICAID ==
[2025-01-28 12:35] LABS: BASOPHILS ABSOLUTE AUTO 0.04 10^3/uL (0.00-0.10); BASOPHILS PERCENT AUTO 1.0 % (0.0-1.0); EOSINOPHILS ABSOLUTE AUTO 0.05 10^3/uL (0.10-0.30); EOSINOPHILS PERCENT AUTO 1.3 % (1.0-3.0); IMMATURE GRAN ABSOLUTE AUTO 0.00 10^3/uL (0.00-0.04); IMMATURE GRAN PERCENT AUTO 0.0 % (0.0-0.4); LYMPHOCYTES ABSOLUTE AUTO 0.72 10^3/uL (1.00-4.00); LYMPHOCYTES PERCENT AUTO 18.7 % (20.0-40.0); MEAN PLATELET VOLUME 8.6 fL (7.4-10.4); MONOCYTES ABSOLUTE AUTO 0.36 10^3/uL (0.10-0.80); MONOCYTES PERCENT AUTO 9.4 % (2.0-8.0); NEUTROPHILS ABSOLUTE AUTO 2.68 10^3/uL (2.50-7.00); NEUTROPHILS PERCENT AUTO 69.6 % (50.0-70.0); PLATELET COUNT,PLT 169 10^3/uL (150-400); RED BLOOD CELL COUNT 5.04 10^6/uL (4.50-6.00); RED CELL DISTRIBUTION WIDTH 14.4 % (11.5-14.5); WHITE BLOOD CELL COUNT,WBC 3.85 10^3/uL (5.00-10.00)
[2025-01-28 12:55] LABS: ALANINE AMINOTRANSFERASE,ALT 63.0 U/L (14-63); ASPARTATE AMNIOTRANSFERASE,AST 114.0 U/L (15-37); BILIRUBIN TOTAL 0.6 mg/dL (0.2-1.0); BLOOD UREA NITROGEN,BUN 9.0 mg/dL (7-18); CARBON DIOXIDE,CO2 23.3 mmol/L (21.0-32.0); CHLORIDE,CL 101.0 mmol/L (98-107); CREATININE 0.66 mg/dL (0.51-1.17); EST CRCL DRUG DOSING (CG) 126.77 mL/min; GLUCOSE RANDOM 129.0 mg/dL (70-140); POTASSIUM,K 3.0 mmol/L (3.5-5.1); PROTEIN TOTAL,TP 8.3 g/dL (6.4-8.2); SODIUM,NA 143.0 mmol/L (136-145)
[2025-01-28 12:56] LABS: ESTIMATED GFR 107.0 mL/min (>=60)
[2025-01-28 12:57] LABS: ETHANOL BLOOD MEDICAL 260.0 mg/dL (<3)
== END 2025-01-28 14:25 | disposition home or self-care (01) ==
LOC: KA.ED 12:06
DX: R00.2 Palpitations (principal); I10 Essential (primary) hypertension; J45.909 Unspecified asthma, uncomplicated; E78.00 Pure hypercholesterolemia, unspecified; Z88.8 Allergy status to other drugs, medicaments and biological substances; Z79.899 Other long term (current) drug therapy; Z86.16 Personal history of COVID-19
CPT/HCPCS: 36415; 80053; 80307; 84484; 85025; 93005; 93010; 99284; 99285